=== PATIENT | male | born 1970 | race American Indian/Alaskan Native ===

== ENCOUNTER 2017-02-25 08:24 | Emergency (ER) | payer BC ==
[2017-02-25 08:50] LABS: Hematocrit 42.1 % (35.5-45.6); Hemoglobin 13.1 gm/dl (11.8-15.2); Mean Corpuscular HGB Conc 31 % (32-34); Platelet Count 174 K/mm3 (140-440); Red Cell Distribution Width 16.8 % (13.2-15.2)
[2017-02-25 08:57] LABS: Mean Corpuscular Hemoglobin 21 pg (28-32); Mean Corpuscular Volume 69 fl (84-94)
[2017-02-25 09:10] LABS: Alanine Aminotransferase 20 units/L (7-56); Albumin 4.2 g/dL (3.9-5); Albumin/Globulin Ratio 1.3 %; Alkaline Phosphatase 78 units/L (35-129); Anion Gap 14 mmol/L; Calcium 8.8 mg/dL (8.4-10.2); Carbon Dioxide 27 mmol/L (22-30); Chloride 103.8 mmol/L (98-107); Glucose 106 mg/dL (75-100); Potassium 4.2 mmol/L (3.6-5.0); Sodium 141 mmol/L (137-145); Total Protein 7.5 g/dL (6.3-8.2)
[2017-02-25] MEDS ORDERED: NACL 0.9% 1000 ML 1,000 ML IV ONE (09:11)
--- NOTE | 2017-02-25 09:16 | Emergency Department Report ---
ED Dizziness HPI - General Chief Complaint: Dizziness Stated Complaint: DIZZINESS/SHAKINESS Time Seen by Provider: 02/25/17 08:56 Source: patient Mode of arrival: Ambulatory Limitations: No Limitations - History of Present Illness Initial Comments: 46-year-old male who presents emergency Department with complaint of lightheadedness. Patient states when he went got out of his car after arriving at work he felt lightheaded and his legs feel heavy. He had a mild tremor of his right hand. All of his symptoms have essentially resolved except for the tremor of his right hand. He did not have a headache no nausea no vomiting chest pain shortness of breath. Otherwise he appears well. MD Complaint: dizziness, lightheadedness -: Sudden Timing: sudden onset Description: lightheadedness History of Same: No History of Trauma: No Severity: mild Improves With: nothing Worsens With: nothing Associated Symptoms: denies: ataxia, chest pain, confusion, cough, diaphoresis, fever/chills, loss of appetite, malaise, rash, seizure, shortness of breath, syncope - Related Data Home Medications Medication Instructions Recorded Confirmed Last Taken No Known Home Medications [No 02/25/17 02/25/17 Unknown Reported Home Medications] Allergies Allergy/AdvReac Type Severity Reaction Status Date / Time No Known Allergies Allergy Verified 02/25/17 08:29 ED Review of Systems ROS: Stated complaint: DIZZINESS/SHAKINESS Other details as noted in HPI Comment: All other systems reviewed and negative Constitutional: denies: chills, fever Eyes: denies: eye pain, eye discharge, vision change ENT: denies: ear pain, throat pain Respiratory: denies: cough, shortness of breath, wheezing Cardiovascular: denies: chest pain, palpitations Endocrine: no symptoms reported Gastrointestinal: denies: abdominal pain, nausea, diarrhea Genitourinary: denies: urgency, dysuria Musculoskeletal: denies: back pain, joint swelling, arthralgia Skin: denies: rash, lesions Neurological: denies: headache, weakness, paresthesias, abnormal gait, vertigo Psychiatric: denies: anxiety, depression Hematological/Lymphatic: denies: easy bleeding, easy bruising ED Past Medical Hx - Past Medical History Previous Medical History?: No - Surgical History Past Surgical History?: No - Family History Family history: no significant - Social History Smoking Status: Never Smoker Substance Use Type: None - Medications Home Medications: Home Medications Medication Instructions Recorded Confirmed Last Taken Type No Known Home Medications [No 02/25/17 02/25/17 Unknown History Reported Home Medications] ED Physical Exam - General Limitations: No Limitations General appearance: alert, in no apparent distress - Head Head exam: Present: atraumatic, normocephalic - Eye Eye exam: Present: normal appearance - ENT ENT exam: Present: mucous membranes moist - Neck Neck exam: Present: normal inspection - Respiratory Respiratory exam: Present: normal lung sounds bilaterally. Absent: respiratory distress - Cardiovascular Cardiovascular Exam: Present: regular rate, normal rhythm, normal heart sounds. Absent: systolic murmur, diastolic murmur, rubs, gallop - GI/Abdominal GI/Abdominal exam: Present: soft, normal bowel sounds - Rectal Rectal exam: Present: deferred - Extremities Exam Extremities exam: Present: normal inspection - Back Exam Back exam: Present: normal inspection - Neurological Exam Neurological exam: Present: alert, oriented X3, other (patient has a mild tremor of his right hand) - Expanded Neurological Exam Expanded Patient oriented to: Present: person, place, time Speech: Present: fluid speech Cranial nerves: EOM's Intact: Normal, Gag Reflex: Normal, Tongue Deviation: Normal, Nystagmus: Normal, Facial Sensation: Normal, Facial Palsy with Forehead Movement: Normal, Facial Palsy without Forehead Movement: Normal Ataxia: Absent: yes Cerebellar function: Finger to Nose: Normal, Heel to Renee: Normal, Romberg: Normal Best Eye Response (Kennedy): (4) open spontaneously Best Motor Response (Blanca): (6) obeys commands Best Verbal Response (Blanca): (5) oriented Kennedy Total: 15 - Psychiatric Psychiatric exam: Present: normal affect, normal mood - Skin Skin exam: Present: warm, dry, intact, normal color. Absent: rash ED Course Vital Signs 02/25/17 02/25/17 02/25/17 08:29 09:05 09:10 Temperature 98.4 F Pulse Rate 81 Respiratory 18 18 Rate Blood Pressure 137/81 127/86 O2 Sat by Pulse 100 Oximetry 02/25/17 02/25/17 02/25/17 09:16 09:30 09:56 Temperature Pulse Rate Respiratory Rate Blood Pressure 127/86 126/82 127/86 O2 Sat by Pulse 100 97 100 Oximetry 02/25/17 02/25/1717 10:00 10:16 10:30 Temperature Pulse Rate Respiratory Rate Blood Pressure 113/58 113/58 120/85 O2 Sat by Pulse 97 98 93 Oximetry 02/25/17 02/25/17 02/25/17 10:46 11:00 11:16 Temperature Pulse Rate Respiratory Rate Blood Pressure 126/82 126/82 145/56 O2 Sat by Pulse 100 99 99 Oximetry 02/25/17 11:30 Temperature Pulse Rate Respiratory Rate Blood Pressure 122/91 O2 Sat by Pulse 100 Oximetry ED Medical Decision Making - Lab Data Result diagrams: 02/25/17 08:39 02/25/17 08:39 Laboratory Results - last 24 hr 02/25/17 02/25/17 02/25/17 08:32 08:39 08:39 WBC 5.0 RBC 6.10 H Hgb 13.1 Hct 42.1 MCV 69 L MCH 21 L MCHC 31 L RDW 16.8 H Plt Count 174 Seg Neutrophils % [employer] Sodium 141 Potassium 4.2 Chloride 103.8 Carbon Dioxide 27 Anion Gap 14 Creatinine 0.8 Estimated GFR > 60 Glucose 106 H POC Glucose 102 Calcium 8.8 Total Bilirubin 0.30 AST 21 ALT 20 Alkaline Phosphatase 78 Total Protein 7.5 Albumin 4.2 Albumin/Globulin Ratio 1.3 Laboratory Results - last 24 hr 02/25/17 02/25/17 02/25/17 08:32 08:39 08:39 WBC 5.0 RBC 6.10 H Hgb 13.1 Hct 42.1 MCV 69 L MCH 21 L MCHC 31 L RDW 16.8 H Plt Count 174 Add Manual Diff Complete Total Counted 100 Seg Neutrophils % [employer] Seg Neuts % (Manual) 34.0 L Band Neutrophils % 0 Lymphocytes % (Manual) 53.0 H Reactive Lymphs % (Man) 0 Monocytes % (Manual) 9.0 H Eosinophils % (Manual) 4.0 Basophils % (Manual) 0 Metamyelocytes % 0 Myelocytes % 0 Promyelocytes % 0 Blast Cells % 0 Nucleated RBC % Not Reportable Seg Neutrophils # Man 1.7 L Band Neutrophils # 0.0 Lymphocytes # (Manual) 2.7 Abs React Lymphs (Man) 0.0 Monocytes # (Manual) 0.5 Eosinophils # (Manual) 0.2 Basophils # (Manual) 0.0 Metamyelocytes # 0.0 Myelocytes # 0.0 Promyelocytes # 0.0 Blast Cells # 0.0 WBC Morphology Not Reportable Hypersegmented Neuts Not Reportable Hyposegmented Neuts Not Reportable Hypogranular Neuts Not Reportable Smudge Cells Not Reportable Toxic Granulation Not Reportable Toxic Vacuolation Not Reportable Dohle Bodies Not Reportable Pelger-Huet Anomaly Not Reportable Ileana Rods Not Reportable Platelet Estimate Appears normal Clumped Platelets Not Reportable Plt Clumps, EDTA Not Reportable Large Platelets Not Reportable Giant Platelets Not Reportable Platelet Satelliting Not Reportable Plt Morphology Comment Not Reportable RBC Morphology Not Reportable Dimorphic RBCs Not Reportable Polychromasia Not Reportable Hypochromasia 2+ Poikilocytosis Not Reportable Anisocytosis Not Reportable Microcytosis 1+ Macrocytosis Not Reportable Spherocytes Not Reportable Pappenheimer Bodies Not Reportable Sickle Cells Not Reportable Target Cells Not Reportable Tear Drop Cells Not Reportable Ovalocytes Not Reportable Helmet Cells Not Reportable Adhikari-[place] Bodies Not Reportable Lyons Rings Not Reportable Mihir Cells Not Reportable Bite Cells Not Reportable Crenated Cell Not Reportable Elliptocytes Not Reportable Acanthocytes (Spur) Not Reportable Rouleaux Not Reportable Hemoglobin C Crystals Not Reportable Schistocytes Not Reportable Malaria parasites Not Reportable Adrian Bodies Not Reportable Hem Pathologist Commnt No Sodium 141 Potassium 4.2 Chloride 103.8 Carbon Dioxide 27 Anion Gap 14 BUN 12 Creatinine 0.8 Estimated GFR > 60 BUN/Creatinine Ratio 15.00 Glucose 106 H POC Glucose 102 Calcium 8.8 Total Bilirubin 0.30 AST 21 ALT 20 Alkaline Phosphatase 78 Total Creatine Kinase CK-MB (CK-2) CK-MB (CK-2) Rel Index Troponin T Total Protein 7.5 Albumin 4.2 Albumin/Globulin Ratio 1.3 02/25/17 09:20 WBC RBC Hgb Hct MCV MCH MCHC RDW Plt Count Add Manual Diff Total Counted Seg Neutrophils % Seg Neuts % (Manual) Band Neutrophils % Lymphocytes % (Manual) Reactive Lymphs % (Man) Monocytes % (Manual) Eosinophils % (Manual) Basophils % (Manual) Metamyelocytes % Myelocytes % Promyelocytes % Blast Cells % Nucleated RBC % Seg Neutrophils # Man Band Neutrophils # Lymphocytes # (Manual) Abs React Lymphs (Man) Monocytes # (Manual) Eosinophils # (Manual) Basophils # (Manual) Metamyelocytes # Myelocytes # Promyelocytes # Blast Cells # WBC Morphology Hypersegmented Neuts Hyposegmented Neuts Hypogranular Neuts Smudge Cells Toxic Granulation Toxic Vacuolation Dohle Bodies Pelger-Huet Anomaly Ileana Rods Platelet Estimate Clumped Platelets Plt Clumps, EDTA Large Platelets Giant Platelets Platelet Satelliting Plt Morphology Comment RBC Morphology Dimorphic RBCs Polychromasia Hypochromasia Poikilocytosis Anisocytosis Microcytosis Macrocytosis Spherocytes Pappenheimer Bodies Sickle Cells Target Cells Tear Drop Cells Ovalocytes Helmet Cells Adhikari-[place] Bodies Lyons Rings Britton Cells Bite Cells Crenated Cell Elliptocytes Acanthocytes (Spur) Rouleaux Hemoglobin C Crystals Schistocytes Malaria parasites Adrian Bodies Hem Pathologist Commnt Sodium Potassium Chloride Carbon Dioxide Anion Gap BUN Creatinine Estimated GFR BUN/Creatinine Ratio Glucose POC Glucose Calcium Total Bilirubin AST ALT Alkaline Phosphatase Total Creatine Kinase 145 CK-MB (CK-2) 2.5 CK-MB (CK-2) Rel Index 1.7 Troponin T < 0.010 Total Protein Albumin Albumin/Globulin Ratio - EKG Data -: EKG Interpreted by Pr - EKG Data 02/25/17 09:17 Sinus 66 normal axis normal intervals he is T-wave inversion in lead [address] or T-wave changes - Medical Decision Making 46-year-old male who presents to ER with complaint of mild lightheadedness. Patient is a mild resting tremor of the right hand. He states this is new. His symptoms essentially resolved on arrival here. Plan labs EKG head CT and will reassess patient. I do not feel this patient is having a CVA at this time. CT head negative. All labs unremarkable this point. He is mildly microcytic. Otherwise his labs are unremarkable. He is a symptomatic currently. Plan to discharge patient home with follow-up with primary care doctor. Portions of this chart were dictated with dictation software. There may be dictation errors contained within this note. Critical care attestation.: If time is entered above; I have spent that time in minutes in the direct care of this critically ill patient, excluding procedure time. ED Disposition Clinical Impression: Lightheadedness Disposition: DC-01 TO HOME OR SELFCARE Is pt being admited?: No Does the pt Need Aspirin: No Condition: Stable Instructions: Lightheadedness (ED)
[2017-02-25 09:49] LABS: Blood Urea Nitrogen 12 mg/dL (9-20)
[2017-02-25 10:05] LABS: Basophils % (Manual) 0 % (0.0-1.8); Blastocytes % (Manual) 0 %; Hypochromasia 2+
[2017-02-25 10:06] LABS: Creatine Kinase MB 2.5 ng/mL (0.0-4.0)
[2017-02-25 10:06] LABS: Diff Status Complete; Microcytosis 1+
[2017-02-25 10:07] LABS: Creatine Kinase 145 units/L (55-170)
--- NOTE | 2017-02-25 10:19 | Cat Scan Report ---
CRANIAL CT SCAN: Right hand tremor, dizziness. Serial contiguous axial images were obtained through the cranium. Intravenous contrast material was not administered. The ventricles are normal in size and appearance. There is no mass effect or midline shift. No areas of abnormally increased or decreased attenuation are seen. No mass lesion is seen. The mastoid air cells and visualized portions of the sinuses are normal. IMPRESSION: Cranial CT scan within normal limits.
[2017-02-25 11:57] LABS: Bilirubin,Urine NEG (Negative); Blood,Urine NEG (Negative); Ketones,Urine NEG (Negative); Leukocyte Esterase,Urine NEG (Negative); Mucus,Urine FEW /HPF; Nitrite,Urine NEG (Negative); Protein,Urine <15 mg/dL mg/dL (Negative); RBC,Urine < 1.0 /HPF (0.0-6.0); Urobilinogen,Urine < 2.0 mg/dL (<2.0)
[2017-02-25 12:03] LABS: WBC,Urine < 1.0 /HPF (0.0-6.0)
[2017-02-25 12:37] VITALS: BP 123/89
== END 2017-02-25 12:39 | disposition home or self-care (01) ==
LOC: ED 08:24
DX: R42 Dizziness and giddiness (principal)
CPT/HCPCS: 36415; 70450; 80053; 81001; 82550; 82553; 82962; 84484; 85007; 85025; 93005; 93010; 96360; 99284; J7030